=== PATIENT | female | born 1965 | race Caucasian/White ===

== ENCOUNTER 2017-11-26 07:15 | Emergency (ER) | payer OTHER, SELFPAY ==
[2017-11-26 07:23] VITALS: BP 133/84; PULSE 86; RESP 18; TEMP 36.6; O2SAT 99; BMI 34.3
--- NOTE | 2017-11-26 07:57 | ED_ITS ---
HPI - Allergic Reaction General Chief complaint: Allergic Reaction Stated complaint: RASH OR HIVES ALL OVER BODY History of Present Illness HPI narrative: HPI 52-year-old female with no known allergic history presents for evaluation of 3 days of diffuse blotchy blanching mildly pruritic elevated erythematous rash that began after working outside [place]. Patient unable to identify any new contact exposures, no new medications, took Benadryl yesterday without significant change in symptoms. Patient without GI upset, wheezing, shortness breath, difficulty swallowing. M/S/F/SocHx notable for: please see HPI; remainder reviewed with patient and in chart. ROS: Negative constitutional, eye, cardiovascular, pulmonary, GI, , MSK, skin , neurologic, psychiatric, endocrine unless noted in the HPI. Exam Gen: Pleasant, non-toxic appearing, resting comfortably. HEENT: NC, AT, PEERL, EOMI. Resp: Clear to auscultation bilaterally, normal work of breathing, no accessory muscle usage. Card: Regular rate and rhythm with no murmurs, rubs, or gallops, extremities warm and well perfused. GI: Non-tender to palpation throughout all quadrants, no focal tenderness at McBurney's point, negative Hernandez's sign, non-distended, no rebound or guarding. : No suprapubic tenderness to palpation. MSK: No visible deformities, strength and tone without visually appreciable deficit. Skin: diffuse urticarial hives with large areas of confluence over the torso and appendicular skeleton, affected areas are blanching with a negative Nikolsky , normal color with no visible lesions. Neuro: AO x 3, no facial asymmetry, vision and hearing WNL. Psych: Mood and affect appropriate. MDM Previous chart, nursing note, labs, imaging, and vitals reviewed. A: 52-year-old female with no known allergic history presents for evaluation of 3 days of diffuse blotchy blanching mildly pruritic elevated erythematous rash that began after working outside on a golf course. DDx: contact dermatitis, cellulitis, Adames-Patel syndrome, toxic epidermal necrolitis, bedbugs Evaluation: examination strongly consistent contact dermatitis history and exam without evidence of cellulitis, SJS, or TEN. Furthermore, there is no evidence of bedbugs. Patient prescribed prednisone and diphenhydramine instructed to follow-up their PCP. Return to care precautions provided Impression: rash (please reference below for remainder of encounter information) Related Data Home Medications Medication Instructions Recorded Confirmed No Known Home Medications 11/26/17 11/26/17 Allergies Allergy/AdvReac Type Severity Reaction Status Date / Time No Known Drug Allergies Allergy Verified 11/26/17 07:32 [facility] Social History Smoking Status: Never smoker Exam Initial Vital Signs Initial Vital Signs: Vital Signs Temperature 97.8 F 11/26/17 07:23 Pulse Rate 86 11/26/17 07:23 Respiratory Rate 18 11/26/17 07:23 Blood Pressure 133/84 H 11/26/17 07:23 Pulse Oximetry 99 11/26/17 07:23 Course Vital Signs - 8 hr 11/26/17 07:23 Temperature 97.8 F Pulse Rate 86 Respiratory Rate 18 Blood Pressure 133/84 H Pulse Oximetry 99 Discharge Plan Departure Prescriptions: No Action No Known Home Medications RF: 0
[2017-11-26 08:12] VITALS: BP 155/88; PULSE 75; RESP 18; O2SAT 98
== END 2017-11-26 08:14 | disposition home or self-care (01) ==
PROVIDERS: Emergency Provider Emergency Medicine; Family Provider Family Medicine; PCP Family Medicine
DX: R21 Rash and other nonspecific skin eruption (principal)
CPT/HCPCS: 36591; 99282; 99283

== ENCOUNTER → 2018-01-07 07:41 | Outpatient (CLI) | payer OTHER, SELFPAY ==
--- NOTE | 2018-01-07 | DI.MG.S_ITS ---
BILATERAL DIGITAL SCREENING MAMMOGRAM 3D/2D WITH CAD: 01/07/2018 CLINICAL: Routine screening. Comparison is made to exams dated: 12/14/2016 mammogram, 12/02/2014 mammogram, and 10/24/2012 mammogram - [facility]. There are scattered fibroglandular elements in both breasts. Current study was also evaluated with a Computer Aided Detection (CAD) system. There is architectural distortion in the left breast posterior depth central to the nipple seen on the craniocaudal view only. No other significant masses, calcifications, or other findings are seen in either breast. IMPRESSION: INCOMPLETE: NEEDS ADDITIONAL IMAGING EVALUATION The architectural distortion in the left breast is indeterminate. Additional views with possible ultrasound are recommended. This exam was interpreted at Station ID: [id number]. NOTE: For mammograms, a report in lay terms will be sent to the patient. Approximately 15% of breast malignancies will not be visualized mammographically. In the management of a palpable breast mass, a negative mammogram must not discourage biopsy of a clinically suspicious lesion. Electronically Signed By: Salima diallo/oneida:01/07/2018 08:38:55 letter sent: Additional Imaging Needed ACR BI-RADS Category 0: Incomplete 3340F
== END ==
PROVIDERS: Family Provider Family Medicine; PCP Family Medicine; Visit Provider Family Medicine
DX: Z12.31 Encounter for screening mammogram for malignant neoplasm of breast (principal)
CPT/HCPCS: 77063; 77067

== ENCOUNTER → 2018-01-22 08:05 | Outpatient (CLI) | payer OTHER, SELFPAY ==
--- NOTE | 2018-01-22 | DI.MG.S_ITS ---
UNILATERAL LEFT DIGITAL DIAGNOSTIC MAMMOGRAM 3D/2D WITH ADDITIONAL VIEWS: 01/22/2018 CLINICAL: Additional evaluation requested from prior study. Comparison is made to exams dated: 01/07/2018 mammogram, 12/29/2016 mammogram, and 12/14/2016 mammogram - [facility]. There are scattered fibroglandular elements in left breast. There is a benign irregular architectural distortion in the left breast posterior depth central to the nipple seen on the craniocaudal view only. This is not seen in additional views. No other significant masses or calcifications are seen in the breast. IMPRESSION: There is no mammographic evidence of malignancy. A 1 year screening mammogram is recommended. This exam was interpreted at Station ID: [id number]. NOTE: For mammograms, a report in lay terms will be sent to the patient. Approximately 15% of breast malignancies will not be visualized mammographically. In the management of a palpable breast mass, a negative mammogram must not discourage biopsy of a clinically suspicious lesion. Electronically Signed By: Rene montgomery/oneida:01/22/2018 08:50:02 letter sent: Normal Exam ACR BI-RADS Category 2: Benign Finding(s) 3342F
== END ==
PROVIDERS: Family Provider Family Medicine; PCP Family Medicine; Visit Provider Family Medicine
DX: R92.8 Other abnormal and inconclusive findings on diagnostic imaging of breast (principal)
CPT/HCPCS: 77065; G0279

== ENCOUNTER → 2018-05-03 09:26 | Outpatient (CLI) | payer OTHER, SELFPAY ==
--- NOTE | 2018-05-03 | DI.RAD.S_ITS ---
PROCEDURE: XR CHEST 2V INDICATIONS: HYPERTENSION TECHNIQUE: 2 views of the chest were acquired. COMPARISON: None. FINDINGS: Surgical changes and devices: None. Lungs and pleura: No pleural effusions or pneumothorax. Lungs are clear. Mediastinum: Mediastinal contours are normal. Heart size is normal. Bones and chest wall: Nonaggressive appearing 9 mm oval sclerotic focus involving the right humeral head likely representing a bone island. No suspicious bony abnormalities. Soft tissues appear unremarkable. IMPRESSION: Chest without acute cardiopulmonary abnormalities. Dictated by: Nawaf Lawton M.D. on 05/03/2018 at 14:55 Approved by: Nawaf Lawton M.D. on 05/03/2018 at 14:56
== END ==
PROVIDERS: Family Provider Family Medicine; PCP Family Medicine; Visit Provider Family Medicine
DX: I10 Essential (primary) hypertension (principal)
CPT/HCPCS: 71046

== ENCOUNTER → 2019-01-20 10:10 | Outpatient (CLI) | payer OTHER, SELFPAY | PROVIDERS: Family Provider Family Medicine; PCP Family Medicine; Visit Provider Nurse Practitioner Family | DX: R10.811 Right upper quadrant abdominal tenderness (principal); R10.816 Epigastric abdominal tenderness ==

== ENCOUNTER → 2019-01-21 16:08 | Outpatient (CLI) | payer OTHER, SELFPAY ==
--- NOTE | 2019-01-21 | DI.US.S_ITS ---
PROCEDURE: US ABDOMEN COMPLETE INDICATIONS: ABDOMINAL TENDERNESS/EPIGASTRIC/RUQ TECHNIQUE: Real-time scanning was performed of the abdominal and retroperitoneal organs, with image documentation. COMPARISON: None. FINDINGS: Liver: The liver demonstrates prominent size. The liver demonstrates generalized increased echogenicity. This decreases ultrasound sensitivity for detection of hepatic masses. Gallbladder: No findings of gallstones or sludge are seen. The gallbladder wall is not thickened, measuring 3 mm or less. No specific pericholecystic fluid is seen. The sonographic Hernandez sign is negative. Biliary ducts: Intrahepatic bile ducts are non-dilated. Extrahepatic bile duct caliber measures 6 mm. Normal is 6-7 mm or less in diameter, or 10 mm or less post-cholecystectomy. Pancreas: Visualized portions of the pancreas are sonographically normal. Spleen: Spleen is normal in size and homogeneous in echotexture. Kidneys: Kidneys are normal in size and echotexture. Right kidney measures 9.9 cm long; left kidney measures 10.5 cm long. No hydronephrosis or nephrolithiasis. No solid masses. Aorta: Visualized aorta is normal in caliber at less than 3 cm. Iliacs: Proximal common iliac arteries are normal in caliber at less than 2.5 cm. IVC: Intrahepatic inferior vena cava is patent. Miscellaneous: No free abdominal fluid. IMPRESSION: The gallbladder demonstrates a normal sonographic appearance. No biliary dilatation is seen. Prominent, fatty infiltrated liver. Dictated by: Dontae Bledsoe M.D. on 01/21/2019 at 16:29 Approved by: Dontae Bledsoe M.D. on 01/21/2019 at 16:30
== END ==
PROVIDERS: PCP Family Medicine; Visit Provider Family Medicine
DX: R10.816 Epigastric abdominal tenderness (principal); R10.811 Right upper quadrant abdominal tenderness; K76.0 Fatty (change of) liver, not elsewhere classified
CPT/HCPCS: 76700

== ENCOUNTER → 2019-01-31 07:38 | Outpatient (CLI) | payer OTHER, SELFPAY ==
--- NOTE | 2019-01-31 | DI.MG.S_ITS ---
BILATERAL DIGITAL SCREENING MAMMOGRAM 3D/2D WITH CAD: 01/31/2019 CLINICAL: Routine screening. Family history of breast cancer. Comparison is made to exams dated: 01/07/2018 mammogram, 12/14/2016 mammogram, 12/02/2014 mammogram, and 10/24/2012 mammogram - [facility]. There are scattered fibroglandular elements in both breasts. Current study was also evaluated with a Computer Aided Detection (CAD) system. No significant masses, calcifications, or other findings are seen in either breast. There has been no significant interval change. IMPRESSION: NEGATIVE There is no mammographic evidence of malignancy. A 1 year screening mammogram is recommended. This exam was interpreted at Station ID: [id number]. NOTE: For mammograms, a report in lay terms will be sent to the patient. Approximately 15% of breast malignancies will not be visualized mammographically. In the management of a palpable breast mass, a negative mammogram must not discourage biopsy of a clinically suspicious lesion. Electronically Signed By: Kali cox/oneida:01/31/2019 22:23:24 letter sent: Normal Exam ACR BI-RADS Category 1: Negative 3341F
== END ==
PROVIDERS: PCP Family Medicine; Visit Provider Family Medicine
DX: Z12.31 Encounter for screening mammogram for malignant neoplasm of breast (principal); Z80.3 Family history of malignant neoplasm of breast
CPT/HCPCS: 77063; 77067

== ENCOUNTER → 2020-02-03 10:56 | Outpatient (CLI) | payer OTHER, SELFPAY ==
--- NOTE | 2020-02-03 | DI.MG.S_ITS ---
BILATERAL DIGITAL SCREENING MAMMOGRAM 3D/2D WITH CAD: 02/03/2020 CLINICAL: Routine screening. Family history of breast cancer. Comparison is made to exams dated: 01/31/2019 mammogram, 01/22/2018 mammogram, 01/07/2018 mammogram, 12/29/2016 mammogram, and 12/14/2016 mammogram - [facility]. There are scattered fibroglandular elements in both breasts. Current study was also evaluated with a Computer Aided Detection (CAD) system. There is a possible asymmetry in the left breast middle depth medial region seen on the craniocaudal view only. This is more prominent. No other significant masses, calcifications, or other findings are seen in either breast. IMPRESSION: INCOMPLETE: NEEDS ADDITIONAL IMAGING EVALUATION The possible asymmetry in the left breast is indeterminate. Additional views with possible ultrasound are recommended. This exam was interpreted at Station ID: [id number]. NOTE: For mammograms, a report in lay terms will be sent to the patient. Approximately 15% of breast malignancies will not be visualized mammographically. In the management of a palpable breast mass, a negative mammogram must not discourage biopsy of a clinically suspicious lesion. Electronically Signed By: Nawaf jo/oneida:02/03/2020 13:55:21 letter sent: Additional Imaging Needed ACR BI-RADS Category 0: Incomplete 3340F
== END ==
PROVIDERS: PCP Family Medicine; Referring Provider Family Medicine; Visit Provider Family Medicine
DX: Z12.31 Encounter for screening mammogram for malignant neoplasm of breast (principal); Z80.3 Family history of malignant neoplasm of breast
CPT/HCPCS: 77063; 77067

== ENCOUNTER → 2020-02-26 08:33 | Outpatient (CLI) | payer OTHER, SELFPAY ==
--- NOTE | 2020-02-26 | DI.US.S_ITS ---
LIMITED ULTRASOUND OF LEFT BREAST: 02/26/2020 CLINICAL: Patient returns today to evaluate a focal asymmetry in the left breast. Comparison is made to exams dated: 02/26/2020 mammogram, 02/03/2020 mammogram, 01/31/2019 mammogram, 01/22/2018 mammogram, 01/07/2018 mammogram, and 12/14/2016 mammogram - [facility]. Real-time ultrasound of the left breast was performed. Ramos scale images of the real-time examination were reviewed. No significant abnormalities were seen sonographically in the left breast. Scattered fibroglandular tissue but no mass is identifed in the mammographic area of concern. IMPRESSION: NEGATIVE There is no sonographic evidence of malignancy. A 1 year screening mammogram is recommended. This exam was interpreted at Station ID: [id number]. Electronically Signed By: Allen lowe/oneida:02/26/2020 14:00:08 letter sent: Normal Exam Ultrasound BI-RADS: 1 Negative
--- NOTE | 2020-02-26 | DI.MG.S_ITS ---
UNILATERAL LEFT DIGITAL DIAGNOSTIC MAMMOGRAM 3D/2D WITH ADDITIONAL VIEWS: 02/26/2020 CLINICAL: Additional evaluation requested from prior study. Comparison is made to exams dated: 02/03/2020 mammogram, 01/31/2019 mammogram, and 01/07/2018 mammogram - [facility]. There are scattered fibroglandular elements in left breast. The previously seen asymmetry in the left breast medial region posterior depth seen on CC view localizes to the inferior breast at the 7 o'clock position. When compared to multiple prior exams dating back to 12/02/2014, this focal asymmetry does not appear significantly changed given differences in patient positioning between exams, and most likely represents normal fibroglandular tissue. No significant masses, calcifications, or other findings are seen in the breast. IMPRESSION: INCOMPLETE: NEEDS ADDITIONAL IMAGING EVALUATION The focal asymmetry in the left breast is indeterminate. A targeted ultrasound is recommended for further evaluation and will be performed immediately following this exam. This exam was interpreted at Station ID: [id number]. NOTE: For mammograms, a report in lay terms will be sent to the patient. Approximately 15% of breast malignancies will not be visualized mammographically. In the management of a palpable breast mass, a negative mammogram must not discourage biopsy of a clinically suspicious lesion. Electronically Signed By: Allen lowe/oneida:02/26/2020 13:32:52 ACR BI-RADS Category 0: Incomplete 3340F
== END ==
PROVIDERS: PCP Family Medicine; Referring Provider Family Medicine; Visit Provider Family Medicine
DX: R92.8 Other abnormal and inconclusive findings on diagnostic imaging of breast (principal)
CPT/HCPCS: 76642; 77065; G0279

== ENCOUNTER → 2020-05-13 11:50 | Outpatient (CLI) | payer OTHER, SELFPAY ==
--- NOTE | 2020-05-13 | DI.US.S_ITS ---
PROCEDURE: US PELVIC COMPLETE INDICATIONS: Excessive and frequent menstruation with irregular cycle TECHNIQUE: Real-time scanning was performed of the pelvic organs, with image documentation. Additional endovaginal scanning was necessary due to incomplete visualization of the adnexal and endometrial structures by transabdominal scanning. COMPARISON: None. FINDINGS: Uterus: Uterus is normal in size at 9.9 x 5.1 x 6.3 cm. The endometrium measures 9 mm in combined thickness. Endometrial Ms. Heterogeneous. A 9 x 8 x 10 mm intramural fibroid is identified in the left posterior uterine wall. Ovaries: Right ovary measures 5.4 x 3.7 x 3.1 cm. Left ovary measures 2.8 x 1.9 x 1.4 cm. There is a 3.5 x 3.0 x 2.9 cm cyst in the right ovary. On Doppler ultrasound, there is vascularity to both ovaries. Other: No pathologic free abdominal or pelvic fluid. IMPRESSION: 1. Endometrium may be thickened depending on menstruation status. Endometrium appears heterogeneous. Recommend GASTROENTEROLOGY MANAGER consultation. 2. A small uterine fibroid. 3. A 3.5 cm cyst in right ovary, probably a dominant ovarian follicle. Dictated by: David Rider M.D. on 05/13/2020 at 15:30 Approved by: David Rider M.D. on 05/13/2020 at 15:36
== END ==
PROVIDERS: PCP Family Medicine; Referring Provider Family Medicine; Visit Provider Family Medicine
DX: N92.1 Excessive and frequent menstruation with irregular cycle (principal); D25.1 Intramural leiomyoma of uterus; N83.201 Unspecified ovarian cyst, right side
CPT/HCPCS: 76830; 76856

== ENCOUNTER → 2021-01-03 09:42 | Outpatient (CLI) | payer SELFPAY ==
--- NOTE | 2021-01-03 | DI.US.S_ITS ---
PROCEDURE: US PERIPH VENOUS LOW EXTREM LT INDICATIONS: LOWER EXTREMITY EDEMA TECHNIQUE: Real-time imaging, as well as color and pulse Doppler interrogation, were performed of the lower extremity deep veins from the inguinal ligament to the popliteal fossa. COMPARISON: None. FINDINGS: The common femoral, femoral and popliteal veins are normally compressible, and free of intraluminal thrombus. Color and pulse Doppler demonstrate normal phasic intraluminal flow. There is normal augmentation response to distal compression maneuver. IMPRESSION: No sonographic evidence of DVT. Dictated by: Jean Marie Acosta M.D. on 01/03/2021 at 10:24 Approved by: Jean Marie Acosta M.D. on 01/03/2021 at 10:24
== END ==
PROVIDERS: PCP Family Medicine; Referring Provider Family Medicine; Visit Provider Family Medicine
DX: R60.0 Localized edema (principal)
CPT/HCPCS: 93971

== ENCOUNTER → 2021-08-01 08:50 | Outpatient (CLI) | payer OTHER, SELFPAY ==
--- NOTE | 2021-08-01 08:53 | DI.MG.S_ITS ---
BILATERAL DIGITAL SCREENING MAMMOGRAM 3D/2D WITH CAD: 08/01/2021 CLINICAL: Routine screening. Comparison is made to exams dated: 02/03/2020 mammogram, 01/31/2019 mammogram, and 01/07/2018 mammogram - [facility]. There are scattered fibroglandular elements in both breasts. Current study was also evaluated with a Computer Aided Detection (CAD) system. No significant masses, calcifications, or other findings are seen in either breast. There has been no significant interval change. IMPRESSION: NEGATIVE There is no mammographic evidence of malignancy. A 1 year screening mammogram is recommended. This exam was interpreted at Station ID: [id number]. NOTE: For mammograms, a report in lay terms will be sent to the patient. Approximately 15% of breast malignancies will not be visualized mammographically. In the management of a palpable breast mass, a negative mammogram must not discourage biopsy of a clinically suspicious lesion. Electronically Signed By: Nawaf Lawton M.D. at/oneida:08/01/2021 12:28:48 letter sent: Normal Exam ACR BI-RADS Category 1: Negative 3341F
== END ==
PROVIDERS: PCP Family Medicine; Referring Provider Family Medicine; Visit Provider Family Medicine
DX: Z12.31 Encounter for screening mammogram for malignant neoplasm of breast (principal)
CPT/HCPCS: 77063; 77067